=== PATIENT | male | born 1970 | race African-American/Black ===

== ENCOUNTER → 2021-11-16 | Outpatient (CLI) | payer MEDICAID ==
--- NOTE | 2021-11-16 08:37 | Diagnostic Imaging Report ---
PROCEDURE: CT abdomen and pelvis without contrast. TECHNIQUE: Multiple contiguous axial images were obtained through the abdomen and pelvis without the use of intravenous contrast. Auto Exposure Controls were utilized during the CT exam to meet ALARA standards for radiation dose reduction. INDICATION: Abdominal pain and rectal bleeding. No prior studies are available for comparison. Lung bases are clear. No discrete liver mass is detected. Gallbladder is unremarkable. No biliary ductal dilatation. Pancreas and spleen are unremarkable. No adrenal mass is detected. Right kidney is unremarkable. There is an exophytic low-attenuation lesion upper pole left kidney measuring 17 mm, likely a cyst. There is no calculi or hydronephrosis identified. Aorta is nonaneurysmal. The small and large bowel loops are normal caliber. There is no obstruction. The appendix is visualized in the right lower quadrant and appears unremarkable. No free fluid or fluid collection is seen. The bladder and prostate are unremarkable. Bony structures are nonacute. IMPRESSION: Essentially unremarkable noncontrast CT of the abdomen and pelvis. No acute features detected. Dictated by: Dictated on workstation # [id number]
== END ==
LOC: RAD 07:45
PROVIDERS: ATTEND Nurse Practitioner Family
DX: R10.84 Generalized abdominal pain (principal); K62.5 Hemorrhage of anus and rectum
CPT/HCPCS: 74176

== ENCOUNTER 2021-11-25 05:38 | Outpatient (CLI) | payer MEDICAID ==
[~2021-11-25] VITALS: Ht 175 cm; Wt 72.7 kg
== END 2021-11-25 10:32 ==
LOC: PREOP 05:38
PROVIDERS: ATTEND Surgery
DX: Z01.818 Encounter for other preprocedural examination (principal)

== ENCOUNTER 2021-12-06 08:41 | Day surgery (SDC) | payer MEDICAID ==
[~2021-12-06] VITALS: Ht 175 cm; Wt 72.7 kg
[2021-12-06] MEDS ORDERED: LACTATED RINGERS 1,000 ML IV ONE (09:00)
[2021-12-06] MEDS ORDERED: LACTATED RINGERS 1,000 ML IV STA (09:09)
[2021-12-06 09:10] VITALS: BP 109/79
[2021-12-06] MEDS ORDERED: HURRICAINE EXT TUBE (BENZOCAINE) XX PRN (09:15)
--- NOTE | 2021-12-06 09:42 | Progress Note-Pre Operative ---
Pre-Operative Progress Note H&P Reviewed The H&P was reviewed, patient examined and no changes noted. Time Seen by Provider: 09:38 Date H&P Reviewed: Dec 06, 2021 Time H&P Reviewed: 09:38 Pre-Operative Diagnosis: Rectal bleed, Abd pain, Gastritis FRANCISCO MENENDEZ DO Dec 06, 2021 09:42
[2021-12-06] MEDS ORDERED: PROPOFOL INJECTION 50 ML IV ONE ×2 (10:27→10:57)
[2021-12-06] MEDS ORDERED: MIDAZOLAM 2 MG/2 ML (VERSED) VIAL ONE (10:27)
[2021-12-06 11:45] VITALS: BP 131/92
[2021-12-06 11:50] VITALS: BP 118/95
[2021-12-06 11:55] VITALS: BP 117/96
[2021-12-06 12:26] VITALS: BP 142/105
--- NOTE | 2021-12-06 13:05 | Progress Note-Post Operative ---
Post-Operative Progess Note Surgeon (s)/Cancer Center Director (s) Surgeon FRANCISCO MENENDEZ DO Cancer Center Director: Drew Lucas, MSIII Pre-Operative Diagnosis Rectal bleed, Abd pain, Gastritis Post-Operative Diagnosis Gastritis Hiatal hernia Esophagitis Polyps int hemorrhoids Procedure & Operative Findings Date of Procedure 12/06/21 Procedure Performed/Findings EGD with bx Colon with snare polypectomy PROCEDURE NOTE: After informed consent was obtained, the patient was brought to the endoscopy suite, placed in bed in left lateral decubitus position. He was administered IV sedation by the PRODUCT MERCHANDISER who then monitored vitals the entire time, heart rate, blood pressure and pulse ox and the scope was inserted down the mouth through the esophagus into the stomach. On the way down, noted some mild esophagitis, took a picture, pushed into the stomach, pushed past the antrum into the duodenum. Duodenum looked good. Pulled back and did a biopsy of antrum, then retroflexed the scope, saw small hiatal hernia, took a picture of this and then pulled the scope into the GE junction, took another picture of the hiatal hernia and then did a biopsy of the GE junction. Pushed the scope back into the stomach, suctioned all the air out of the stomach. At this point pulled the scope up the esophagus and out the mouth. Switched camera, switched gloves, went down below and started the colonoscopy. Pushed all the way in, to about 140 cm to get all the way to cecum. Took a picture of the appendiceal orifice, noted the ileocecal valve and then slowly withdrew the scope, insufflating to look circum- ferentially at the natarajan starting in the cecum and up the ascending colon. Found a polyp here and able to suction it up after doing a snare polypectomy. Then in the transerse colon found three polyps here, all to large to suction up and did snare polypectomy on them. Then used the Duran net to gather all of them up and pulled the scope completely out. Pushed back in to the same spot, then resumed looking at the colon down the remainder of transverse colon; where I found 3 more large polyps removed with snare in 5 pieces and again used the Duran net and removed the scope completely. Pushed back in to the splenic flexure; resumed coming out to the descending colon where I foiund 3 polyps; 2 suctioned up and one (which was the biggest of the day) had to use the Duran net again. Finally down into the sigmoid and into the rectum, retroflexed in the rectal vault, saw some minimal internal hemorrhoids and took a picture of this. The patient tolerated the procedure and he recovered in the endoscopy suite. Anesthesia Type IV sedation by PRODUCT MERCHANDISER Estimated Blood Loss Estimated blood loss (mL): scant Specimens/Packing Specimens Removed antral bx body of stomach bx GE jxn bx asc polyps transverse polyps desc polyps FRANCISCO MENENDEZ DO Dec 06, 2021 13:05
--- NOTE | 2021-12-06 13:06 | Endoscopy Discharge Instruct ---
Endo Procedure/Findings Findings 1.: Gastritis 2.: Hiatal Hernia 3.: Polyp 4.: Internal Hemorrhoids Discharge Instructions - Activity: You might feel a little sleepy until tomorrow. This is due to the medicine you received to relax you. Until tomorrow, you should: NOT drive a car, operate machinery or power tools. NOT drink any alcoholic beverages. NOT make any important decisions or sign importortant papers. Do not return to work until tomorrow, unless otherwise instructed. Resume previous activities tomorrow. Diet: Start by taking liquids. If you tolerate liquids, advance to solid food. 1.: EGD in 3 years 2.: Colonoscopy in 1 year Notify Physician - If you experience excessive bleeding, unusual abdominal pain, fever, or chest pain, contact your doctor immediately. FRANCISCO MENENDEZ DO Dec 06, 2021 13:06
[2021-12-06 13:15] VITALS: BP 122/72
--- NOTE | 2021-12-06 14:34 | Anesthesia-General Post-Op ---
MAC Patient Condition Mental Status/LOC: Same as Preop Cardiovascular: Satisfactory Nausea/Vomiting: Absent Respiratory: Satisfactory Pain: Controlled Complications: Absent Post Op Complications Complications None Follow Up Care/Instructions Patient Instructions None needed. Anesthesiology Discharge Order Discharge Order Patient is doing well, no complaints, stable vital signs, no apparent adverse anesthesia problems. No complications reported per nursing. MILTON GOFF CRNA Dec 06, 2021 14:34
== END 2021-12-06 13:15 | disposition home or self-care (01) ==
LOC: ENDO 08:41
PROVIDERS: ATTEND Surgery
DX: K29.51 Unspecified chronic gastritis with bleeding (principal); D12.2 Benign neoplasm of ascending colon; D12.3 Benign neoplasm of transverse colon; D12.4 Benign neoplasm of descending colon; K44.9 Diaphragmatic hernia without obstruction or gangrene; K20.91 Esophagitis, unspecified with bleeding; K64.8 Other hemorrhoids; F17.210 Nicotine dependence, cigarettes, uncomplicated

== ENCOUNTER 2022-12-07 05:47 | Outpatient (CLI) | payer MEDICAID ==
[~2022-12-07] VITALS: Ht 175.3 cm; Wt 74.8 kg
== END 2022-12-07 10:57 ==
LOC: PREOP 05:47
PROVIDERS: ATTEND Surgery
DX: Z01.818 Encounter for other preprocedural examination (principal)

== ENCOUNTER 2022-12-19 09:16 | Day surgery (SDC) | payer MEDICAID ==
[~2022-12-19] VITALS: Ht 175.3 cm; Wt 74.8 kg
[2022-12-19] MEDS ORDERED: LACTATED RINGERS 1,000 ML IV STA (09:36)
--- NOTE | 2022-12-19 09:48 | Progress Note-Pre Operative ---
Pre-Operative Progress Note Date of Available H&P: Dec 06, 2022 Date H&P Reviewed: Dec 19, 2022 Time H&P Reviewed: 09:46 History & Physical: H&P Reviewed, Patient Examed, No changes noted Pre-Operative Diagnosis: Hx of polyps FRANCISCO MENENDEZ DO Dec 19, 2022 09:48
[2022-12-19 09:54] VITALS: BP 153/106
[2022-12-19] MEDS ORDERED: PROPOFOL INJECTION 50 ML IV ONE ×2 (10:07→10:30)
--- NOTE | 2022-12-19 11:03 | Anesthesia-General Post-Op ---
MAC Patient Condition Mental Status/LOC: Same as Preop Cardiovascular: Satisfactory Nausea/Vomiting: Absent Respiratory: Satisfactory Pain: Controlled Complications: Absent Post Op Complications Complications None Follow Up Care/Instructions Patient Instructions None needed. Anesthesiology Discharge Order Discharge Order Patient is doing well, no complaints, stable vital signs, no apparent adverse anesthesia problems. No complications reported per nursing. EVE JOHNSON CRNA Dec 19, 2022 11:03
[2022-12-19 11:05] VITALS: BP 131/92
--- NOTE | 2022-12-19 11:09 | Progress Note-Post Operative ---
Post-Operative Progess Note Surgeon (s)/Shipping And Receiving Supervisor (s) Surgeon FRANCISCO MENENDEZ DO Shipping And Receiving Supervisor: ROMAN OswaldII Pre-Operative Diagnosis Hx of polyps Post-Operative Diagnosis polyps int hemorrhoids Procedure & Operative Findings Date of Procedure 12/19/22 Procedure Performed/Findings Colonoscopy with snare PROCEDURE NOTE: After informed consent was obtained, the patient was brought to the endoscopy suite, placed in bed in left lateral decubitus position. He was administered IV sedation by the ANIMAL SHELTER WORKER who then monitored his vitals the entire time, heart rate, blood pressure and pulse ox and the scope was inserted, pushed all the way to about 150 cm and pushed into the cecum, took a picture of appendiceal orifice and noted the ileocecal valve. Then slowly withdrew the scope insufflating to look circumferentially at the natarajan starting in the cecum and up the ascending colon. I found a large polyp here on a stalk and removed it with snare polypectomy. I actually had to take the scope all the way out to remove the polyp. Pushed back in to the hepatic flexure and then started removing the scope; down the transverse colon to splenic flexure and into the descending colon. Here I found another polyp, which I also removed with the snare. Continued down into the sigmoid and then into the rectal vault. I retroflexed the scope and took a picture of the internal hemorrhoids. The patient tolerated the procedure. He was recovered in endoscopy suite. Recommended for repeat colonoscopy in 5 years. Anesthesia Type IV sedation by ANIMAL SHELTER WORKER Estimated Blood Loss Estimated blood loss (mL): scant Specimens/Packing Specimens Removed asc colon polyp desc colon polyp FRANCISCO MENENDEZ DO Dec 19, 2022 11:09
--- NOTE | 2022-12-19 11:10 | Endoscopy Discharge Instruct ---
Endo Procedure/Findings Findings 1.: Polyp 2.: Internal Hemorrhoids Discharge Instructions - Activity: You might feel a little sleepy until tomorrow. This is due to the medicine you received to relax you. Until tomorrow, you should: NOT drive a car, operate machinery or power tools. NOT drink any alcoholic beverages. NOT make any important decisions or sign importortant papers. Do not return to work until tomorrow, unless otherwise instructed. Resume previous activities tomorrow. Diet: Start by taking liquids. If you tolerate liquids, advance to solid food. 1.: Colonscopy in 5 years Notify Physician - If you experience excessive bleeding, unusual abdominal pain, fever, or chest pain, contact your doctor immediately. Follow-Up: Other Follow up in my office in one week FRANCISCO MENENDEZ DO Dec 19, 2022 11:10
[2022-12-19 11:25] VITALS: BP 131/92
== END 2022-12-19 11:25 | disposition home or self-care (01) ==
LOC: ENDO 09:16
PROVIDERS: ATTEND Surgery
DX: Z12.11 Encounter for screening for malignant neoplasm of colon (principal); D12.2 Benign neoplasm of ascending colon; D12.4 Benign neoplasm of descending colon; K64.8 Other hemorrhoids; F17.210 Nicotine dependence, cigarettes, uncomplicated; Z28.310 Unvaccinated for COVID-19